=== PATIENT | female | born 1935 | race Caucasian/White ===

== ENCOUNTER 2023-07-17 06:13 | Day surgery (SDC) | payer MEDICARE, SELFPAY ==
[2023-07-12 09:04] LABS: % Basophils 0.4 % (0-2); % Immature Granulocytes 0.2 % (0-0.5); % Lymphocytes 30.1 % (20.5-51.1); % Monocytes 8.3 % (1.7-9.3); Absolute Eosinophils 0.3 10^3/uL (0-0.7); Absolute Lymphocytes 1.7 10^3/uL (1.2-3.4); Absolute Monocytes 0.5 10^3/uL (0.1-0.6); Absolute Neutrophils 3.2 10^3/uL (1.4-6.5); Hematocrit 35.7 % (37.0-47.0); Mean Corp Hgb Conc. 33.6 g/dL (33.0-37.0); Mean Corpuscular Hgb 30.8 pg (27.0-31.0); Mean Corpuscular Volume 91.5 fL (81.0-99.0); Nucleated Red Blood Cells % 0 %; Platelet Count 284 10^3/uL (130-400); White Blood Cell Count 5.6 10^3/uL (4.8-10.8)
[2023-07-12 09:29] LABS: INR 0.99; PT 13.1 Sec (11.4-14.6)
[2023-07-12 09:30] LABS: APTT 32.3 Sec (23.4-35.0)
[2023-07-12 09:35] LABS: ALT (SGPT) 22 U/L (0-35); AST (SGOT) 31 U/L (14-36); Albumin 4.2 g/dl (3.5-5.0); Alkaline Phosphatase 79 U/L (38-126); Blood Urea Nitrogen 17 mg/dl (7-17); Calcium 9.5 mg/dl (8.4-10.2); Carbon Dioxide 26 mmol/L (22-30); Chloride 107 mmol/L (98-107); Glucose 91 mg/dl (70-99); Potassium 3.7 mmol/L (3.5-5.1); Sodium 138 mmol/L (135-145); Total Bilirubin 0.8 mg/dl (0.2-1.3); Total Protein 7.3 g/dl (6.3-8.2); eGFR > 60.00
--- NOTE | 2023-07-12 10:43 | PTCARENOTE ---
Carrie at 's office was notified of abnormal chest x-ray taken on 07/12/23.
--- NOTE | 2023-07-12 12:52 | PTCARENOTE ---
Dr. Myles reviewed patients 07/12 CXR- requests 'followup'- Mary @ Dr. Christie office notified
[2023-07-17 06:10] VITALS: BMI 25.0
[2023-07-17 06:32] VITALS: BP 153/81
[2023-07-17] MEDS: CELEBREX 200 MG PO (07:03)
[2023-07-17] MEDS: NORMOSOL-R 1000 IV (07:03)
[2023-07-17] MEDS: TYLENOL 1000 MG PO (07:03)
[2023-07-17 07:10] VITALS: BMI 25.0
[2023-07-17 08:30] VITALS: BP 152/81
[2023-07-17 08:45] VITALS: BP 143/82
--- NOTE | 2023-07-17 08:51 | OR.RPT ---
Operative Report
Operative Report
DATE OF OPERATION: 07/17/2023
SURGEON: Brannon Bradley MD
PREOPERATIVE DIAGNOSIS: Grade 4 prolapsed internal hemorrhoid, possible anal mass
POSTOPERATIVE DIAGNOSIS: Anal mass, mild anal stenosis
OPERATION: Exam under anesthesia, biopsy of anal mass, bilateral pudendal nerve block
ASSISTANTS:
1. None
ANESTHESIA: MAC w/ local
ESTIMATED BLOOD LOSS: 5 mL
FINDINGS:
1. Prolapsing anal mass, about 3cm in length and 2cm wide, in the right lateral position without associated internal hemorrhoid, appears verrucous and nonmobile and causing mild anal stenosis; extends proximal into the anal canal to dentate line;
biopsied
2. Raised lesion in the left lateral quadrant of the distal anal canal, less than 1 cm in size; biopsied
3. Pendulous verrucous lesion, about 1 cm in size, noted in the right anterior position, possibly associated with right lateral anal mass versus a separate lesion; biopsied
SPECIMENS:
1. Right lateral mass biopsy
2. Left lateral lesion biopsy
3. Right anterior lesion biopsy
DRAINS: None
COMPLICATIONS: None
INDICATIONS: The patient is a 88-year-old female who presented with concern of prolapsing hemorrhoid associated with some pink-tinged drainage. On exam in the office, there appeared to be a prolapsing internal hemorrhoid with some nodularity
overlying the hemorrhoid. Therefore, the patient was recommended to have surgery for a better exam, possible hemorrhoidectomy and possible biopsy if concern for anal lesion. The operation was discussed with the patient in detail, including the
risks, benefits and alternatives. Risks described included, but not limited to, bleeding, infection, damage to nearby structures such as the anal sphincter, fecal incontinence, recurrence, urinary retention, and anesthetic risks. The patient
understood and agreed to proceed. The consent was signed and placed in the chart.
PROCEDURE IN DETAIL: The patient was taken to the operating room and placed on the operating table in prone position. Sequential compression devices were placed bilaterally. Sedation was commenced without complication. Two seat belts were secured
around the legs and upper back. The buttocks were taped apart. The perineum was prepped and draped in the usual fashion. A time-out was then performed verifying the correct patient, procedure, operative site, positioning, and special equipment.
Local anesthesia used was a mixture of 60 mL of 0.25% Marcaine with epinephrine and 0.6 mL of dexamethasone. 40 mL was injected perianally at the beginning of the case. The anorectal exam was performed assessing all four quadrants of the anal canal
using Hill-Gomez retractors in progressively increasing size. However, due to mild anal stenosis, the anus would not accommodate the large Hill-Gomez retractor. The prolapsing hemorrhoid in the right lateral position was evaluated and
appeared to be a prolapsing mass without an associated internal hemorrhoid as was initially thought from exam in the office. The mass was verrucous, not fungating or ulcerated, and about 3 cm in length, extending to the dentate line. It was about
2 cm wide and was associated with mild anal stenosis. There was also a small raised lesion in the left lateral aspect of the distal anal canal that was less than 1 cm in size. Lastly, a verrucous-appearing appendage was noted in the right anterior
position emanating from the midportion of the anal canal, possibly arising from the right lateral mass versus a separate lesion. There was no concerning internal or external hemorrhoids. Therefore, I proceeded with biopsies of each of the lesions.
Metzenbaum scissors were used to excise the prolapsing portion of the right lateral mass. There was no clear plane between the mass and the anal sphincter, but I attempted to minimize the amount of sphincter involved in the biopsy. This was
passed off and hemostasis was achieved with electrocautery. Next, the left lateral mass was biopsied by grasping the raised lesion, elevating it and excising a small portion with Metzenbaum scissors. Hemostasis was achieved with electrocautery.
The pendulous verrucous mass in the right anterior position of the mid anal canal was then grasped and elevated, and excised at it's stalk with Metzenbaum scissors. Hemostasis was achieved with holding pressure to the area for about 1 minute.
The anal canal was copiously irrigated and evaluated for hemostasis. Electrocautery was used to achieve hemostasis at the biopsy sites. Surgicel was placed in the anal canal prophylactically. At the end of the case, the remaining 20 mL of local
were injected. 5 mL was injected bilaterally for a pudendal nerve block. 10 mL was injected around the surgical site and perianally.
At this point, the procedure was complete. All needle, sponge and instrument counts were correct. The patient tolerated the procedure well and was transferred to the recovery room in stable condition with gauze dressing in place secured with silk
tape.
DICTATED BY: Brannon Bradley MD
[2023-07-17 09:15] VITALS: BP 160/81
[2023-07-17 09:30] VITALS: BP 137/65
[2023-07-17 09:45] VITALS: BP 138/68
== END 2023-07-17 10:20 | disposition home or self-care (01) ==
LOC: SDS 06:13
PROVIDERS: ATTENDING PHYSICIAN Surgery
DX: C21.0 Malignant neoplasm of anus, unspecified (principal); K64.3 Fourth degree hemorrhoids; K62.4 Stenosis of anus and rectum
CPT/HCPCS: 46260; 11403; 88304; 88305; 36415; 71046; 80053; 85025; 85610; 85730; 86850; 86900; 86901; 88342; 93005

== ENCOUNTER → 2023-08-01 07:56 | Outpatient (REF) | payer MEDICARE, SELFPAY | LOC: MRI 07:56 | PROVIDERS: ATTENDING PHYSICIAN Surgery; FAMILY PHYSICIAN Family Medicine | DX: C21.0 Malignant neoplasm of anus, unspecified (principal) | CPT/HCPCS: 72197; A9575 ==

== ENCOUNTER → 2023-08-02 15:00 | Outpatient (REF) | payer MEDICARE, SELFPAY | LOC: HWRAD 15:00 | PROVIDERS: ATTENDING PHYSICIAN Surgery; FAMILY PHYSICIAN Family Medicine | DX: C21.0 Malignant neoplasm of anus, unspecified (principal) | CPT/HCPCS: 71260; 74177; Q9967 ==

== ENCOUNTER 2023-08-20 06:56 | Day surgery (SDC) | payer MEDICARE, SELFPAY ==
[2023-08-20] VITALS (7 sets, daily range): BP systolic 116–155; BP diastolic 62–89
[2023-08-20] MEDS: TYLENOL 1000 MG PO (14:35)
[2023-08-20] MEDS: CELEBREX 200 MG PO (14:35)
[2023-08-20] MEDS: NORMOSOL-R 1000 IV (14:35)
--- NOTE | 2023-08-20 16:21 | OR.RPT ---
Operative Report
Operative Report
DATE OF OPERATION: 08/20/2023
SURGEON: Brannon Bradley MD
PREOPERATIVE DIAGNOSIS: Anal squamous cell cancer
POSTOPERATIVE DIAGNOSIS: Same
OPERATION: Right subclavian port-a-cath insertion
ASSISTANTS:
1. None
ANESTHESIA: MAC w/ local
ESTIMATED BLOOD LOSS: 10 mL
FINDINGS:
1. After placement, the tip of port catheter visualized at level of the cavoatrial junction on fluoroscopy
2. Once sutured in position, port tested with Gil needle and there was good withdrawal of blood and instillation of heparinized saline without resistance
SPECIMENS: None
DRAINS: None
COMPLICATIONS: No immediate complications.
INDICATIONS: The patient is a 88-year-old female with stage I anal squamous cell carcinoma. Neoadjuvant chemotherapy with chemoradiation was recommended. Therefore, I recommended port placement. The operation was discussed with the patient in
detail including risks and benefits. Risks discussed included, but are not limited to, bleeding, infection, hemothorax, pneumothorax, and anesthetic risks. The patient understood and agreed to proceed. The consent was signed and placed in the chart.
PROCEDURE: Patient was taken to the operating room and placed on the operating table in supine position. Sequential compression devices were placed bilaterally. Sedation was commenced without complication. Bilateral arms were tucked and the head
tilted toward the left. The right neck and chest wall area were prepped and draped in a sterile fashion. A time-out was then performed verifying the correct patient, procedure, operative site, positioning, and special equipment.
The patient was then placed in Trendelenburg position. Local anesthetic consisting of lidocaine 1% with epinephrine was used to numb the skin and soft tissue near the angle of the right clavicle and the planned subcutaneous port pocket. Then using
bony landmarks as a guide, I passed the needle with 10mL syringe under the right collar bone in the direction of the sternal notch while simultaneously aspirating. On the first pass, good venous return was noted indicating that I had accessed the
right subclavian vein. However, the guidewire was noted to be curling within the vessel and not advancing smoothly. Therefore I withdrew the needle and guidewire. A second pass was attempted. Good venous return was noted and the guidewire was
threaded without resistance. Under fluoroscopic guidance the guidewire was passed down to the superior vena cava. This went smoothly.
The needle was removed over the guidewire and a skin opening was enlarged with an 11 blade scalpel. Next, I advanced the dilator and peel-away sheath together over the guidewire into the patient. This went smoothly as well. Appropriate placement
was confirmed with fluoroscopy. Next, the guidewire and inner dilator were removed leaving the outer sheath in place. I advanced the white tubing through the outer sheath into the patient under fluoroscopic guidance to the superior vena cava near
the right atrium. Next, the outer sheath was peeled away while maintaining the white tubing in place.
Using a 15 blade scalpel, I made a 4cm incision over the chest wall near the white tubing exit site. A subcutaneous pocket was created inferiorly to the incision with a combination of Bovie electrocautery and blunt dissection. There was good
hemostasis. The white tubing was connected to the tunneling device and brought through a newly created tunnel to the pocket area, taking care to avoid kinking of the tube. The white tubing was trimmed, connected to the the port reservoir and secured
with the locking mechanism. The port reservoir was accessed with good venous return and flushed with heparinized saline. One last round of fluoroscopy was performed. The tip of the white tubing was at the level of the superior vena cava and there
was no kink in the tubing.
The reservoir was then secured to the chest wall within the pocket with two 3-0 Prolene stitches. The subcutaneous layer was closed with deep dermal interrupted 3-0 Vicryl and the skin was closed with a running subcuticular 4-0 Vicryl. The remaining
local was injected around the subcutaneous pocket, port incision and stab incision. Dermabond was used to dress the port incision and stab incision.
At this point, the procedure was complete. All sponge, needle and instrument counts were correct. The patient tolerated the procedure well and was transferred to the recovery room in stable condition. A portable chest x-ray was ordered in recovery
to confirm port position and rule-out pneumothorax.
DICTATED BY: Brannon Bradley MD
== END 2023-08-20 18:07 | disposition home or self-care (01) ==
LOC: SDS 06:56
PROVIDERS: ATTENDING PHYSICIAN Surgery
DX: C21.0 Malignant neoplasm of anus, unspecified (principal)
CPT/HCPCS: 36561; 71045; 76000; C1788

== ENCOUNTER → 2023-08-29 13:55 | Outpatient (REF) | payer MEDICARE, SELFPAY ==
[2023-08-29 14:26] VITALS: BP 140/80; BP_SYST 72
[2023-08-29 14:50] VITALS: BP 153/77
== END ==
LOC: RADI 13:55
PROVIDERS: ATTENDING PHYSICIAN Registered Nurse; FAMILY PHYSICIAN Family Medicine
DX: T82.524A Displacement of infusion catheter, initial encounter (principal); Y83.8 Other surgical procedures as the cause of abnormal reaction of the patient, or of later complication, without mention of misadventure at the time of the procedure; C21.1 Malignant neoplasm of anal canal
CPT/HCPCS: 36598

== ENCOUNTER → 2023-08-30 12:45 | Outpatient (REF) | payer MEDICARE, SELFPAY ==
[2023-08-30] MEDS: TRANSDERM-SCOP 1 PATCH TRANSDERM (13:31)
[2023-08-30 13:32] VITALS: BP 167/83; BP_SYST 62
[2023-08-30] MEDS: ANCEF 10 IV (13:44)
[2023-08-30 15:34] VITALS: BP 129/81
== END ==
LOC: RADI 12:45
PROVIDERS: ATTENDING PHYSICIAN Registered Nurse; FAMILY PHYSICIAN Family Medicine
DX: T82.524A Displacement of infusion catheter, initial encounter (principal); Y83.8 Other surgical procedures as the cause of abnormal reaction of the patient, or of later complication, without mention of misadventure at the time of the procedure; C21.0 Malignant neoplasm of anus, unspecified
CPT/HCPCS: 36561; 36590; 76937; 77001; 99152; 99153; C1788

== ENCOUNTER 2023-10-09 10:04 | Inpatient (IN) | payer MEDICARE, SELFPAY ==
[2023-10-07 18:20] VITALS: BP 152/71
[2023-10-07 18:26] LABS: Glucose - Point of Care 106 mg/dl (70-99)
--- NOTE | 2023-10-07 18:52 | ED.GENMED ---
History of Present Illness
General
Chief Complaint: Abdominal Symptoms
Source: patient and family
Exam Limitations: none
Time Seen by Provider: 10/07/23 18:52
Nursing documentation reviewed up to this point in time: agreed with
Travel History
Have you had any contact with someone who has COVID-19?: No
Do you have any symptoms of coronavirus? Fever > 100 degrees, chills, cough, shortness of breath, sore throat, loss of taste or smell, muscle aches, or headache?: No
History of Present Illness
History of Present Illness:
88-year-old female with history of HTN, anal squamous cell cancer, right subclavian Port-A-Cath, followed by [facility] Dr. Waters. Sunday (2 days ago), finished her second week of chemo and was also given one dose of Mitomycin at
that visit (and was told by Dr. Ortiz that 'the side effects will be much worse' per pt and her friend at bedside). She has been incontinent of stool since 'it is like chocolate syrup just pouring out of me.' 'My rectum and vaginal areas are so swollen
and sore.' She is also losing more of her hair. Denies n/v, fever, abdominal pain, CP, SOB. She also finished her radiation treatment 2 days ago.
Past History
Past History
ED Past Medical History: HTN and Hypercholesterolemia
ED Past Surgical History: Gynecological (Hysterectomy) and Orthopedic (Status post right femur ORIF, R knee replaced both in 2022 Dr. Mtz at [facility])
Social History
Tobacco: Non-smoker
Alcohol: None
Drug: None
Personal:
Living: alone
Family History
Family History: Other (Father with valve replacement. Brother with a valve replacement. Sister with pancreatic cancer)
Review of Systems
Review of Systems
Allergies reviewed?: Yes
All Other Systems: ROS reviewed and negative except as documented in HPI and ROS
Constitutional: Reports fatigue; Denies fever
EENT: Reports mouth pain
Respiratory: Denies trouble breathing
Cardiac: Denies chest pain
ABD/GI: Reports diarrhea and anorexia; Denies abdominal pain, nausea, vomiting or bloody stools
: Reports other (vaginal irritation, swelling and pain, rectal pain and irritation); Denies dysuria, difficulty voiding or urgency
Musculoskeletal: Denies edema
Neurological: Reports weakness (generalized); Denies dizzy, headache or numbness
Phy Exam
Physical Exam
Physical Exam:
GENERAL: No acute distress. A&Ox3. Weak and frail
CONSTITUTIONAL: Afebrile.
EYES: PERRL, conjunctivae normal
Neck: Supple
ENMT: moist mucus membranes, few small erythematous patches soft palate and pharynx
RESPIRATORY: Regular respirations, nonlabored, lungs clear.
CARDIOVASCULAR: Regular rate and rhythm, no murmurs, no rubs.
GI: Soft, nontender, normal BS
: vaginal and rectal area mild to moderately swollen and tender, erythematous, no pus drainage, skin intact
MUSCULOSKELETAL: Moves with ease. Well perfused.
SKIN: Warm, dry, pink
PSYCH: Normal mood and affect. Well kept, interactive and appropriate
NEUROLOGIC: Awake, alert and oriented. No focal neurological deficits
Course
Orders/Labs/Results
Orders:
Orders
10/07/23 19:04
STOOL [C difficile Antigen & Toxins] Urgent
QIAAN Source: Feces/Stool
Specimen Description:
Stool Culture Urgent
QIANA Source: Feces/Stool
Specimen Description:
0.9% Sodium Chloride 1000 ml [Nss] 1,000 ml IV BOLUS
10/07/23 19:10
Complete Blood Count/With Diff Urgent
Comprehensive Metabolic Panel Urgent
10/07/23 22:00
Flush (0.9% Sodium Chloride) [Flush (Nss)] See Dose Instructions IV PER PROTOCOL
10/07/23 22:47
Admit/Transfer Patient As Directed
Co-Sign Provider:
Level of Care: Observation services
Assign to:: Medical/Surgical
Physician / Group: hospitalist
Diagnosis: diarrhea
10/07/23 22:50
Code Status As Directed
Resuscitation Status: Full Code
10/08/23 00:14
Acetaminophen [Tylenol] 650 mg PO Q4HPRN PRN
Dextrose 5%/0.45%Sodchl 1000ML [D5/0.45%NaCl] 1,000 ml IV 100 mls/hr
Lorazepam [Ativan] 1 mg PO BID PRN
Mag&Al/Sim/Diphenhyd/Lidocaine [First-Mouthwash Blm Suspension] 5 ml PO QIDPRN PRN
Ondansetron Injectable [Zofran] 4 mg IV Q6HPRN PRN
Oxycodone [Roxicodone] 5 mg PO Q4HPRN PRN
10/08/23 00:14
Consult Notification Routine
Specialty to Notify: Oncology
ONCOLOGY CONSULT Routine
Consulting Provider: Sidra Panchal
Was physician already notified: No
Reason for consult: post chemo mucositis/diarrhea
CDIFF [C difficile Antigen & Toxins] Urgent
QIANA Source: Feces/Stool
Specimen Description:
Stool Culture Urgent
QIANA Source: Feces/Stool
Specimen Description:
Stool For WBC Urgent
QIANA Source: Feces/Stool
Specimen Description:
Activity As Directed
Activity Level: With Assistance
Vital Signs As Directed
Frequency: Per unit guidelines
DX Deep Vein Thrombosis Video Routine
10/08/23 06:00
Basic Metabolic Panel IN AM
Complete Blood Count/No Diff IN AM
10/08/23 08:00
Losartan [Cozaar] 100 mg PO DAILY
10/08/23 Dinner
Full Liquids
At Your Request: Limited Participation
Flush Continuous pump feedings with water (mL/hr): 25
10/08/23 18:00
Enoxaparin Sodium [Lovenox] 40 mg SC QPM
10/08/23 22:00
Metoprolol Xl [Toprol Xl] 25 mg PO HS
Abnormal Lab Results
10/07/23 10/07/23
18:24 19:10
WBC 3.5 L 10^3/uL
(4.8-10.8)
RBC 3.04 L 10^6/uL
(4.20-5.40)
Hgb 9.8 L g/dL
(12.0-16.0)
Hct 27.3 L %
(37.0-47.0)
MCH 32.2 H pg
(27.0-31.0)
Absolute Lymphs (auto) 0.3 L 10^3/uL
(1.2-3.4)
Immature Gran % 0.9 H %
(0-0.5)
Neutrophils % 84.3 H %
(42.2-75.2)
Lymphocytes % 7.4 L %
(20.5-51.1)
BUN 19 H mg/dl
(7-17)
Glucose 114 H mg/dl
(70-99)
Total Protein 5.9 L g/dl
(6.3-8.2)
Albumin 3.4 L g/dl
(3.5-5.0)
POC Glucose 106 H mg/dl
(70-99)
10/07/23 19:10
10/07/23 19:10
Vital Signs
Initial and Last Documented VS:
Initial Vital Signs
Temp Pulse Resp BP Pulse Ox
98.2 F 65 19 152/71 99
10/07/23 18:20 10/07/23 18:20 10/07/23 18:20 10/07/23 18:20 10/07/23 18:20
Last Documented Vital Signs
Temp Pulse Resp BP Pulse Ox
98.4 F 62 18 124/87 97
10/08/23 00:15 10/08/23 00:23 10/08/23 00:23 10/08/23 00:23 10/08/23 00:23
MDM/Problems Addressed
Differential Diagnosis Includes:
mucosal irritation, chemo side effect, Cdiff, bacterial colitis
MDM/Problems Addressed:
88-year-old female with history of HTN, anal squamous cell cancer, right subclavian Port-A-Cath, followed by [facility] Dr. Waters. Sunday (2 days ago), finished her second week of chemo and was also given one dose of Mitomycin at
that visit (and was told by Dr. Ortiz that 'the side effects will be much worse' per pt and her friend at bedside). She has been incontinent of stool since 'it is like chocolate syrup just pouring out of me.' 'My rectum and vaginal areas are so swollen
and sore.' She is also losing more of her hair. Denies n/v, fever, abdominal pain, CP, SOB. She also finished her radiation treatment 2 days ago.
Afebrile
Labs with no clinically significant abnormality
9:30 PM
No diarrhea since arrival
After 1 Liter NSS IV pt states she still feels 'so weak'
Consulted Dr. Panchal who requests pt be admitted as she lives alone, has mouth sores and diarrhea from chemotherapy.
Admit: Oral mucosal inflammation, generalized weakness, mild dehydration, diarrhea
Hospitalist notified of admission
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
*Critical Care Note
Total Time (30-74mins, 75-104mins- exclusive of procedures): Not Applicable
Patient Management
Social determinants of health affecting care: Strong social support
ED Attending Note
-
Portions of this chart may have been created with voice recognition software.� Occasional wrong word or��sound alike� substitutions may have occurred due to the inherent limitations of voice recognition software.
Discharge Plan
Departure
Patient Disposition: Admit
Date of Disposition: 10/07/23
Time of Disposition: 21:26
Presentation/result/management discussed w/ accepting MD/DO: Hospitalist
Condition: Fair
Discharge Problem:
Mild dehydration, General weakness, Oral cavity pain, Diarrhea due to drug
Interventions
Interventions:
*Risk Screen - Suicide Last Done: 10/07/23 18:20
*General Assessment Last Done: 10/07/23 18:20
*Neglect/Abuse Screening Last Done: 10/07/23 18:20
ED- Fall Risk Assessment Last Done: 10/08/23 00:23
*ED COVID-19 Vaccine History Last Done: 10/07/23 18:20
*Nursing Disposition Last Done: 10/08/23 00:23
JE-Iagfce-Zbldjumdck Assessment Last Done: 10/07/23 18:58
Discharge Date and Time
Discharge Date/Time: 10/08/23 00:24
[2023-10-07 19:02] VITALS: BP 118/70
[2023-10-07] MEDS: NSS 1000 IV (19:11)
[2023-10-07 19:17] LABS: % Basophils 0.3 % (0-2); % Eosinophils 5.4 % (0-6); % Immature Granulocytes 0.9 % (0-0.5); % Lymphocytes 7.4 % (20.5-51.1); % Monocytes 1.7 % (1.7-9.3); % Neutrophils 84.3 % (42.2-75.2); Absolute Eosinophils 0.2 10^3/uL (0-0.7); Absolute Lymphocytes 0.3 10^3/uL (1.2-3.4); Absolute Monocytes 0.1 10^3/uL (0.1-0.6); Hematocrit 27.3 % (37.0-47.0); Hemoglobin 9.8 g/dL (12.0-16.0); Mean Corp Hgb Conc. 35.9 g/dL (33.0-37.0); Mean Corpuscular Hgb 32.2 pg (27.0-31.0); Mean Corpuscular Volume 89.8 fL (81.0-99.0); Mean Platelet Volume 8.9 fL (7.4-10.4); Nucleated Red Blood Cells % 0 %; Platelet Count 132 10^3/uL (130-400); Red Blood Cell Count 3.04 10^6/uL (4.20-5.40); Red Cell Dist. Width 14.3 % (11.5-14.5); White Blood Cell Count 3.5 10^3/uL (4.8-10.8)
[2023-10-07 20:07] LABS: ALT (SGPT) 18 U/L (0-35); AST (SGOT) 21 U/L (14-36); Albumin 3.4 g/dl (3.5-5.0); Alkaline Phosphatase 59 U/L (38-126); Blood Urea Nitrogen 19 mg/dl (7-17); Calcium 9.2 mg/dl (8.4-10.2); Carbon Dioxide 24 mmol/L (22-30); Chloride 104 mmol/L (98-107); Glucose 114 mg/dl (70-99); Potassium 3.9 mmol/L (3.5-5.1); Sodium 135 mmol/L (135-145); Total Protein 5.9 g/dl (6.3-8.2); eGFR > 60.00
[2023-10-07 22:16] VITALS: BP 125/81
--- NOTE | 2023-10-07 22:42 | HPS.HSE ---
Family Physician
-
Family Physician: Lauri Alarcon
Chief Complaint
-
Mouth pain and diarrhea with weakness
History of Present Illness
This is a 88-year-old female was history of anal cancer currently on chemotherapy and radiation who presents to the emergency department after her last treatment with oral ulcers and pain as well as uncontrolled diarrhea for the last 2 days.
Patient reported that in addition to her usual chemotherapy she received mitomycin on Sunday and since then she has been having a lot of trouble with tolerating p.o. due to oral pain.� She has been having recurrent diarrhea with watery stools at
home.� She reports chills but no connor fevers.� She denies abdominal pain.� She is unable to tolerate p.o. and feels dehydrated.� She denied any syncopal episodes.� She feels weak and exhausted.
She has received multiple rounds of radiation to the pelvic region and developed perineal pain and swelling.� She does denies any dysuria, flank pain or hematuria.� She was sent into the emergency department by her oncologist.
On arrival in the emergency department she was normotensive, afebrile and in moderate distress.� Saturation was 97% on room air.� CBC was unremarkable with a white count of 3.5 hemoglobin of 9.8, platelet of 132.� Chemistries were also within normal
limits.�
Medical History
Past Medical History
Past Medical History: Reports HTN
Additional Past Medical History:
Anal Ca
Past Surgical History: Reports Orthopedic
Social History
Tobacco: Non-smoker
Alcohol: None
Drug: None
Personal: Single
Living: Alone
Employment: Retired
Family History
Family History: Not pertinent
Allergies / Home Medications
Allergies reflects when Allergies were last updated in [employer].
Home Medications with original date entered in [employer]
Allergy/Medication List:
Allergies
Allergy/AdvReac Type Severity Reaction Status Date / Time
clindamycin Allergy Rash Verified 08/29/23 14:31
Home Medications
Prevagen 1 tab PO DAILY 12/11/19
coenzyme Q10 100 mg capsule (Co Q-10) 100 mg PO DAILY 12/11/19
cyanocobalamin (vitamin B-12) 1,000 mcg tablet 1,000 mcg PO DAILY 12/11/19
Align 2 gum PO DAILY 07/13/23
Curcumin 1 tab PO DAILY 07/13/23
Metamucil 2 gum PO HS 07/13/23
Multi-Vitamin 2 gum PO DAILY 07/13/23
[place] 3 Fish Oil 1,080 mg PO DAILY 07/13/23
Vitamin C 1 gum PO DAILY 07/13/23
hydralazine 10 mg tablet 20 mg PO TID 07/13/23
lorazepam 1 mg tablet 1 mg PO DAILY PRN anxiety 07/13/23
losartan 100 mg tablet 100 mg PO DAILY 07/13/23
magnesium citrate 2 gum PO DAILY 07/13/23
metoprolol succinate 25 mg tablet,extended release 24 hr 25 mg PO HS 07/13/23
turmeric 3 gum PO DAILY 07/13/23
vitamin D3 125 mcg (5,000 unit)-vitamin K2 100 mcg capsule 1 cap PO DAILY 07/13/23
tramadol 50 mg tablet 50 mg PO Q6H PRN Pain #10 tabs 07/17/23
Beet Root 1 gum PO DAILY 08/16/23
naproxen 500 mg tablet (Naprosyn) 500 mg PO BID #10 tabs 08/20/23
Review of Systems
-
History Source: Patient
Constitutional: Reports Weight Loss and Fatigue
EENT: Reports Mouth Pain
Respiratory: Reports No Symptoms
Cardiac: Reports No Symptoms
Abdomen/GI: Reports Diarrhea and Anorexia
: Reports No Symptoms
Musculoskeletal: Reports No Symptoms
Skin: Reports No Symptoms
Neurological: Reports Weakness
Hematologic/Lymphatic: Reports No Symptoms
Psych: Reports No Symptoms
Physical Exam
Vital Signs
Vital Signs
Temp Pulse Resp BP Pulse Ox
98.2 F 64 18 125/81 97
10/07/23 18:20 10/07/23 22:16 10/07/23 22:16 10/07/23 22:16 10/07/23 22:16
Physical Exam
General: Well Developed, Well Nourished, Appears in Distress and Poor Appetite
HEENT: NormoCephalic, Anicteric, Moist mucous membranes and Atraumatic
Respiratory: Clear
Cardiac: S1/S2 and Regular Rhythm
Breast: Deferred by me
GI: Soft, Non Tender, Non Distended and Normal Bowel Sounds
Rectal: Deferred by Provider
Genito-urinary: Turbid Urine
Musculoskeletal: No Clubbing, No Cyanosis and No Edema
Skin: Warm and Lesions
Neuro: AO x 3 and Nonfocal/grossly intact
Hematologic/Lymphatic: No Lymphadenopathy
Psych: Calm
Laboratory Results
-
10/07/23 19:10
10/07/23 19:10
Laboratory Results
Total Bilirubin 1.0 mg/dl (0.2-1.3) 10/07/23 19:10
AST 21 U/L (14-36) 10/07/23 19:10
ALT 18 U/L (0-35) 10/07/23 19:10
Alkaline Phosphatase 59 U/L (38-126) 10/07/23 19:10
Data Reviewed
-
Lab Data: Labs Reviewed by me
Impression/Plan
-
IMPRESSION:
88 y.o with anorectal ca s/p XRT and chemotherapy coming to ED after last infusion with mytomycin.� She reports oral pain and ulcers and persistent watery diarrhea.� No fevers, chills or leukocytosis.� Unable to tolerate po and significant weakness.
PLAN:
1.� Diarrhea - Suspect post chemo diarrhea from mucositis.� Moderate dehydration. Hemodynamically stable.� More uncomfortable than toxic.
- admit to med/surg
- rule out CDIFF, and stool culture and wbc
- IV fluids with d5 NS for nor
- diet as tolerated
2.� Weakness - 2/2 to chemo and deydration
- IV fluids as above
3.� Oral Mucositis
- magic mouth wash
- pain control
4. HTN
- metoprlol 25 daily
- amlodipine 5 daily
DVT PPX - lovenox sq
Full Code
[2023-10-08 00:15] VITALS: BP 157/70; BMI 23.6
[2023-10-08 00:23] VITALS: BP 124/87
[2023-10-08] MEDS: ZOFRAN 4 MG IV ×3 (00:40→20:15)
[2023-10-08] MEDS: D5/0.45%NACL 1000 IV ×3 (00:40→20:14)
--- NOTE | 2023-10-08 01:00 | PTCARENOTE ---
pt is aaox3, anxious, states she feels extremely weak, poor appetite since Fridays chemo, and diarrhea since Sunday. pt is on IVF. Pt is giving Zofran for nausea. pt has mouth sores-is on medicated mouth wash. home medications taking to pharmacy. pt
is oriented to room w/ call vargas in reach
[2023-10-08] MEDS: TYLENOL 650 MG PO ×3 (01:01→20:20)
[2023-10-08 06:16] LABS: Hematocrit 25.4 % (37.0-47.0); Mean Corp Hgb Conc. 35.4 g/dL (33.0-37.0); Mean Corpuscular Hgb 31.7 pg (27.0-31.0); Mean Corpuscular Volume 89.4 fL (81.0-99.0); Mean Platelet Volume 9.1 fL (7.4-10.4); Platelet Count 125 10^3/uL (130-400); Red Blood Cell Count 2.84 10^6/uL (4.20-5.40); Red Cell Dist. Width 14.1 % (11.5-14.5)
[2023-10-08 06:25] LABS: White Blood Cell Count 1.9 10^3/uL (4.8-10.8)
--- NOTE | 2023-10-08 06:31 | CON.ONC ---
Impression
Impression
Anal canal cancer, stage I (T1 N0)
Chemo mucositis
Chemo/RT enteritis
Dehydration
History of hemorrhoids
History of mycosis fungoides, currently quiescent
Plan
Plan
IV hydration
Magic mouthwash
Increase Imodium and change to standing dose
Only wants Tylenol for pain.
Low threshold for adding GCSF, needs diff on daily CBC.
Try to d/c 10/08, needs to resume radiation, has four treatments left.
Thank you for consult, will follow along with you.
Patient History
History of Present Illness
88 yo woman well known to me from the outpt setting for history of anal cancer, undergoing chemo/RT with curative intent. First cycle of chemotherapy was with 5-FU only due to question of tolerance at 88. However, she tolerated cycle 1 very well
and had a lot of concerns about recurrence risk so mitomycin was added at 20% dose reduction for cycle 2, given 5 - 10/04. Pt called the office last night with c/o severe diarrhea, mouth sores, perineal irritation from radiation. Denies fever.
Not yet done with radiation. Pt lives alone and was having difficulty managing due to weakness, pain. Sent to ED where vitals were stable but noted to be in moderate distress. Today, states mouth feels better. She does not want to take oxycodone
for pain, only wants Tylenol. Still with significant diarrhea.
Past-Medical/Surgical History
PMHx
Hypertension. Hyperlipidemia. GERD.
Surg
Right Knee and left Hip surgery. Hysterectomy
Soc
Non-smoker, lives alone, single, no children, support system/medical advocate is close friend Leann.
Fam
Mother colon cancer
Sister pancreatic cancer
Patient Medication
�Medication �Instructions �Recorded �Confirmed �Last Taken �Type
Prevagen 1 tab PO DAILY 12/11/19 10/07/23 08/20/23 09:00 History
coenzyme Q10 100 mg capsule (Co 100 mg PO DAILY 12/11/19 10/07/23 08/19/23 History
Q-10)
cyanocobalamin (vitamin B-12) 1,000 mcg PO DAILY 12/11/19 10/07/23 08/19/23 History
1,000 mcg tablet
Align 2 gum PO DAILY 07/13/23 10/07/23 08/19/23 History
Curcumin 1 tab PO DAILY 07/13/23 10/07/23 08/19/23 History
Metamucil 2 gum PO HS 07/13/23 10/07/23 08/19/23 History
Multi-Vitamin 2 gum PO DAILY 07/13/23 10/07/23 08/19/23 History
Grover 3 Fish Oil 1,080 mg PO DAILY 07/13/23 10/07/23 08/19/23 History
Vitamin C 1 gum PO DAILY 07/13/23 10/07/23 08/19/23 History
lorazepam 1 mg tablet 1 mg PO DAILY PRN anxiety 07/13/23 10/07/23 08/20/23 09:00 History
losartan 100 mg tablet 100 mg PO DAILY 07/13/23 10/07/23 08/19/23 08:00 History
magnesium citrate 2 gum PO DAILY 07/13/23 10/07/23 08/19/23 History
metoprolol succinate 25 mg 25 mg PO HS 07/13/23 10/07/23 08/19/23 20:00 History
tablet,extended release 24 hr
turmeric 3 gum PO DAILY 07/13/23 10/07/23 08/19/23 History
vitamin D3 125 mcg (5,000 1 cap PO DAILY 07/13/23 10/07/23 08/19/23 History
unit)-vitamin K2 100 mcg capsule
Beet Root 1 gum PO DAILY 08/16/23 10/07/23 08/19/23 History
Active Medications
Generic Name Dose Route Start Last Admin
Trade Name Freq PRN Reason Stop Dose Admin
Acetaminophen 650 mg 10/08/23 00:14 10/08/23 01:01
Acetaminophen 325 Mg Tablet PO 11/05/23 00:13 650 mg
Q4HPRN PRN Administration
mild pain/CRUZ/temp> 100.4F
Enoxaparin Sodium 40 mg 10/08/23 18:00
Enoxaparin Sodium 40 Mg/0.4 Ml Syringe SC 11/05/23 17:59
QPM STAN
Dextrose/Sodium Chloride 1,000 mls @ 100 mls/hr 10/08/23 00:14 10/08/23 00:40
D5/0.45%Nacl IV 1,000 mls
.Q10H STAN Administration
Lidocaine/Diphenhydr/Alum/Mg/Simeth 5 ml 10/08/23 00:14
Magic Mouthwash 5 Ml Cup (Mag&Al/Sim/Diphenhyd/Lidocaine) PO 11/05/23 00:13
QIDPRN PRN
oral pain
Lorazepam 1 mg 10/08/23 00:14
Lorazepam 1 Mg Tablet PO 11/05/23 00:13
BID PRN
anxiety
Losartan Potassium 100 mg 10/08/23 08:00
Losartan 100 Mg Tablet PO 11/05/23 07:59
DAILY STAN
Metoprolol Succinate 25 mg 10/08/23 22:00
Metoprolol 25 Mg Extended Release Tablet PO 11/05/23 21:59
HS STAN
Ondansetron HCl 4 mg 10/08/23 00:14 10/08/23 00:40
Ondansetron 4 Mg/2 Ml Vial IV 11/05/23 00:13 4 mg
Q6HPRN PRN Administration
NAUSEA/VOMITING
Oxycodone HCl 5 mg 10/08/23 00:14
Oxycodone 5 Mg Regular Release Tablet PO 10/22/23 00:13
Q4HPRN PRN
moderate pain
Sodium Chloride 0 flush 10/07/23 22:00
Sodium Chloride 0.9% (Flush) Syringe IV 11/04/23 21:59
PER PROTOCOL STAN
Physical Exam
-
General: Well Developed and Well Nourished
HEENT: Moist Mucous Membranes
Cardiology: Normal Sinus Rhythm, S1 and S2
Pulmonary: Clear
GI: Soft
Extremities: No C/C/E
Neurology: Non Focal
Skin: Warm and Dry
Hematologic / Lymphatic: No Lymphadenopathy
Psych: Calm and Intact Judgement/Insight
Labs
Lab Results
WBC 1.9 10^3/uL (4.8-10.8) L* 10/08/23 05:52
RBC 2.84 10^6/uL (4.20-5.40) L 10/08/23 05:52
Hgb 9.0 g/dL (12.0-16.0) L 10/08/23 05:52
Hct 25.4 % (37.0-47.0) L 10/08/23 05:52
MCV 89.4 fL (81.0-99.0) 10/08/23 05:52
MCH 31.7 pg (27.0-31.0) H 10/08/23 05:52
MCHC 35.4 g/dL (33.0-37.0) 10/08/23 05:52
RDW 14.1 % (11.5-14.5) 10/08/23 05:52
Plt Count 125 10^3/uL (130-400) L 10/08/23 05:52
MPV 9.1 fL (7.4-10.4) 10/08/23 05:52
Abs Immat Gran (auto) 0.0 10^3/uL (0-0.05) 10/07/23 19:10
Absolute Neuts (auto) 3.0 10^3/uL (1.4-6.5) 10/07/23 19:10
Absolute Lymphs (auto) 0.3 10^3/uL (1.2-3.4) L 10/07/23 19:10
Absolute Monos (auto) 0.1 10^3/uL (0.1-0.6) 10/07/23 19:10
Absolute Eos (auto) 0.2 10^3/uL (0-0.7) 10/07/23 19:10
Absolute Basos (auto) 0.0 10^3/uL (0-0.2) 10/07/23 19:10
Immature Gran % 0.9 % (0-0.5) H 10/07/23 19:10
Neutrophils % 84.3 % (42.2-75.2) H 10/07/23 19:10
Lymphocytes % 7.4 % (20.5-51.1) L 10/07/23 19:10
Monocytes % 1.7 % (1.7-9.3) 10/07/23 19:10
Eosinophils % 5.4 % (0-6) 10/07/23 19:10
Basophils % 0.3 % (0-2) 10/07/23 19:10
Creatinine 0.9 mg/dL (0.6-1.0) 10/07/23 19:10
Vital Signs
Vital Signs
Temp Pulse Resp BP Pulse Ox
98.4 F 62 18 124/87 97
10/08/23 00:15 10/08/23 00:23 10/08/23 00:23 10/08/23 00:23 10/08/23 00:23
[2023-10-08 06:46] LABS: Blood Urea Nitrogen 15 mg/dl (7-17); Calcium 8.7 mg/dl (8.4-10.2); Carbon Dioxide 22 mmol/L (22-30); Chloride 107 mmol/L (98-107); Estimated Creatinine Clearance 50 ml/min; Glucose 101 mg/dl (70-99); Potassium 3.5 mmol/L (3.5-5.1); Sodium 135 mmol/L (135-145); eGFR > 60.00
[2023-10-08 07:00] VITALS: BP 142/81
[2023-10-08] MEDS: COZAAR 100 MG PO (07:42)
[2023-10-08] MEDS: FIRST-MOUTHWASH BLM SUSPENSION 5 ML PO ×3 (08:05→22:30)
--- NOTE | 2023-10-08 09:49 | W.PN.HOSP.TC ---
Today's Communication/Plan
-
see bold, supportive care
Assessment / Plan
Assessment / Plan
88 F with anorectal ca s/p XRT and chemotherapy coming to ED after last infusion with mytomycin.� She reports oral pain and ulcers and persistent watery diarrhea.� No fevers, chills or leukocytosis.� Unable to tolerate po and significant weakness.
Gen: NAD, AAOx3.
Eyes: EOMI, PERRLA, no scleral icterus.
Neck: supple.
CV: RRR, +S1/S2, no m/r/g.
Resp: CTAB, no rales, wheezes, or rhonchi.
Abd: +BS, soft, NT, ND
Skin: No rashes.
Neuro: CN 2-12 intact, non-focal.
Psych: Normal mood and affect.
Anorectal cancer s/p chemo/XRT:
-with pancytopenia: due to chemo
-Daily CBC with diff
-May need G-CSF
-ONC following
Diarrhea:
-likely due to chemo/XRT induced enteritis
-cont IVFs
-C diff NEG
-follow rest of stool studies
-imodium PRN
Weakness:
-due to chemo and dehydration
-cont IVFs
Oral Mucositis:
-cont magic mouth wash
-pain control
Essential HTN:
-cont BB/Norvasc
FULL/Lovenox
Anticipated Discharge: > 48 hours
Subjective/Interval History
-
Date of Service: October 08, 2023
c/o anterior and submandibular neck pain as well as diarrhea
Objective Data
-
Labs:
Laboratory Results
10/08/23
05:52
WBC 1.9 L*
Hgb 9.0 L
Hct 25.4 L
Plt Count 125 L
Sodium 135
Potassium 3.5
Chloride 107
Carbon Dioxide 22
BUN 15
Creatinine 0.7
Glucose 101 H
Calcium 8.7
Vital Signs:
Vital Signs
Temp Pulse Resp BP Pulse Ox
98.2 F 73 18 142/81 98
10/08/23 07:00 10/08/23 07:42 10/08/23 07:00 10/08/23 07:42 10/08/23 07:00
I&O
10/07/23 10/08/23 10/09/23
06:59 06:59 06:59
Intake Total 800 / 800
Output Total 200 / 200
Balance 600 / 600
[2023-10-08] MEDS: IMODIUM 2 MG PO ×2 (10:48→20:20)
--- NOTE | 2023-10-08 10:48 | CM ---
Met with pt at bedside
Pt lives alone in a 1 story home, has support
Currently receiving chemo and radiation for anal cancer. Received last chemo treatment on Sunday
Describes self as independent - does own cooking. cleaning, shopping
DME - cane
SNF/HH - denies past hx
Has ride at d/c
PCP - Dr Colleen Parks
Pharm - [facility]
CM will follow for d/c needs
Plan - anticipate home no needs vs with HH
[2023-10-08 13:03] VITALS: BP 166/79; PULSE 69; O2SAT 95
--- NOTE | 2023-10-08 13:17 | PTOTSP ---
ST Contact
Attempted to see pt for dysphagia evaluation; however, pt adamantly refusing evaluation, stating she 'doesn't need to see any more doctors.' Extensive education provided, but pt continues to refuse. Will try again 1x more tomorrow.
[2023-10-08 15:00] VITALS: BP 164/82
[2023-10-08 15:04] VITALS: BMI 23.6
[2023-10-08] MEDS: HYDROPHOR 1 APPLIC TOPICAL (16:17)
[2023-10-08] MEDS: LMX 4 1 APPLIC TOPICAL ×2 (18:09→22:30)
[2023-10-08] MEDS: ATIVAN 1 MG PO (20:20)
[2023-10-08] MEDS: TOPROL XL 25 MG PO (22:30)
[2023-10-08] MEDS: SILVADENE 1 APPLIC TOPICAL (22:30)
[2023-10-08 23:00] VITALS: BP 141/76
[2023-10-09] MEDS: IMODIUM 2 MG PO ×2 (04:09→08:59)
[2023-10-09] MEDS: D5/0.45%NACL 1000 IV (05:44)
[2023-10-09 07:00] VITALS: BP 160/79
[2023-10-09] MEDS: LMX 4 1 APPLIC TOPICAL (08:53)
[2023-10-09] MEDS: COZAAR 100 MG PO (08:53)
[2023-10-09] MEDS: ATIVAN 1 MG PO (08:59)
[2023-10-09] MEDS: ZOFRAN 4 MG IV (09:00)
[2023-10-09] MEDS: HYDROPHOR 1 APPLIC TOPICAL (09:07)
[2023-10-09] MEDS: SILVADENE 1 APPLIC TOPICAL (09:08)
--- NOTE | 2023-10-09 09:16 | PTOTSP ---
ST Contact
Pt adamantly refused evaluation. FUEL CELL ENGINEER to sign off. Please re-consult if/when pt is more amenable to participating in evaluation. Thank you.
--- NOTE | 2023-10-09 10:10 | W.PN.HOSP.TC ---
Addendum entered and electronically signed by Royal Akers MD 10/09/23 12:33:
Case discussed with oncology. Medically cleared for discharge.
Total time spent on d/c = 33 min. This included today's physical exam, progress note, review of laboratory and diagnostic data, preparation of discharge documents and prescriptions, and discussions about the pt's hospital course and discharge plan
with the patient and other medical information officer involved in the patient's care.
Original Note:
Today's Communication/Plan
-
see bold
Assessment / Plan
Assessment / Plan
88 F with anorectal ca s/p XRT and chemotherapy coming to ED after last infusion with mytomycin.� She reports oral pain and ulcers and persistent watery diarrhea.� No fevers, chills or leukocytosis.� Unable to tolerate po and significant weakness.
Gen: NAD, AAOx3.
Eyes: EOMI, PERRLA, no scleral icterus.
Neck: supple.
CV: remains RRR, +S1/S2, no m/r/g.
Resp: remains CTAB, no rales, wheezes, or rhonchi.
Abd: remains +BS, soft, NT, ND
Skin: No rashes.
Neuro: CN 2-12 intact, non-focal.
Psych: Normal mood and affect.
Anorectal cancer s/p chemo/XRT:
-with pancytopenia: due to chemo
-Daily CBC with diff
-May need G-CSF
-ONC following
-Silvadene, Aquaphor, Lidoderm for radiation-induced skin damage
Diarrhea:
-likely due to chemo/XRT induced enteritis
-cont IVFs
-C diff NEG
-follow rest of stool studies
-imodium PRN
Weakness:
-due to chemo and dehydration
-cont IVFs
Oral Mucositis:
-cont magic mouth wash
-pain control
Essential HTN:
-cont BB/Norvasc
FULL/Lovenox
Anticipated Discharge: Within 24 hours
Subjective/Interval History
-
Date of Service: October 09, 2023
Patient reports diarrhea is improving. Her oral pain has significantly improved.
Objective Data
-
Vital Signs:
Vital Signs
Temp Pulse Resp BP Pulse Ox
98.3 F 64 17 160/79 97
10/09/23 07:00 10/09/23 08:53 10/09/23 07:00 10/09/23 08:53 10/09/23 07:00
I&O
10/08/23 10/09/23 10/10/23
06:59 06:59 06:59
Intake Total 800 / 800 1879
Output Total 200 / 200
Balance 600 / 600 1879
[2023-10-09 10:34] LABS: % Immature Granulocytes 0.5 % (0-0.5); % Lymphocytes 18.9 % (20.5-51.1); % Monocytes 4.7 % (1.7-9.3); % Neutrophils 58.9 % (42.2-75.2); Absolute Eosinophils 0.4 10^3/uL (0-0.7); Absolute Lymphocytes 0.4 10^3/uL (1.2-3.4); Absolute Monocytes 0.1 10^3/uL (0.1-0.6); Absolute Neutrophils 1.3 10^3/uL (1.4-6.5); Hemoglobin 9.9 g/dL (12.0-16.0); Mean Corp Hgb Conc. 35.4 g/dL (33.0-37.0); Mean Corpuscular Hgb 31.7 pg (27.0-31.0); Mean Corpuscular Volume 89.7 fL (81.0-99.0); Mean Platelet Volume 8.7 fL (7.4-10.4); Nucleated Red Blood Cells % 0 %; Platelet Count 125 10^3/uL (130-400); Red Blood Cell Count 3.12 10^6/uL (4.20-5.40); Red Cell Dist. Width 14.2 % (11.5-14.5)
[2023-10-09 10:48] LABS: White Blood Cell Count 2.1 10^3/uL (4.8-10.8)
[2023-10-09 11:19] LABS: Blood Urea Nitrogen 7 mg/dl (7-17); Calcium 8.7 mg/dl (8.4-10.2); Carbon Dioxide 24 mmol/L (22-30); Chloride 107 mmol/L (98-107); Estimated Creatinine Clearance 58 ml/min; Glucose 92 mg/dl (70-99); Potassium 3.3 mmol/L (3.5-5.1); Sodium 137 mmol/L (135-145); eGFR > 60.00
--- NOTE | 2023-10-09 11:40 | WOUNDNOTE ---
ARNULFO RN NOTE: Patient admitted with dehydration, see chart for complete PMH. 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 Patient is up ambulating in room, able to show this bid writer areas of concern
on buttocks and small abrasion L groin. Patient states L groin dry abrasion from rubbing on brief plastic cover, that she used at home. Teaching done regarding skin care and how to pad cover and skin to prevent further skin damage. Patient is happy
with current use of products already ordered for buttocks, no changes recommended. Applied small silicone foam to L groin abrasion and gave patient supplies to take home. Nurse Kiley aware of the above. Will sign off.
--- NOTE | 2023-10-09 11:49 | W.PN.ONC ---
Today's Communication / Plan
-
Neutrophils remain low, but adequate. Okay for discharge from my perspective. Radiation to resume as quickly as possible as outpatient, she will call them.
Impression
Impression
Anal canal cancer, stage I (T1 N0)
Chemo mucositis
Chemo/RT enteritis
Dehydration
History of hemorrhoids
History of mycosis fungoides, currently quiescent
Plan
Plan
IV hydration
Magic mouthwash
Increase Imodium and change to standing dose
Only wants Tylenol for pain.
Low threshold for adding GCSF, needs diff on daily CBC.
Try to d/c 10/08, needs to resume radiation, has four treatments left.
Thank you for consult, will follow along with you.
Subjective/Objective
Subjective/Objective
She is feeling reasonably well. Her symptoms are improving. Examination is unchanged.
Vital Signs:
Vital Signs
Temp Pulse Resp BP Pulse Ox
98.3 F 64 17 160/79 97
10/09/23 07:00 10/09/23 08:53 10/09/23 07:00 10/09/23 08:53 10/09/23 10:23
Lab Results:
Laboratory Data
WBC 2.1 10^3/uL (4.8-10.8) L* 10/09/23 10:28
Hgb 9.9 g/dL (12.0-16.0) L 10/09/23 10:28
Plt Count 125 10^3/uL (130-400) L 10/09/23 10:28
eGFR > 60.00 10/09/23 10:28
--- NOTE | 2023-10-09 12:38 | W.DCSUMMARY ---
Discharge Summary
Discharge Data
Date of Admission: 10/07/23
Date of Discharge: 10/09/23
-
Pending Results: No
Hospital Course
Primary diagnoses:
Diarrhea due to chemotherapy and radiation induced enteritis
Chemotherapy-induced mucositis
Weakness due to dehydration and chemotherapy
Secondary diagnoses:
Anorectal cancer
Essential hypertension
Consultants:
Oncology
Imaging:
None
Hospital course: 88-year-old female who presented with chief complaints of mouth pain, diarrhea, and weakness as outlined in H&P done on admission. Patient had a history of anorectal cancer and was undergoing chemotherapy and radiation. She
recently had received mitomycin. She had chemotherapy and radiation induced enteritis and mucositis. She was treated with Magic mouthwash, IV fluids, antiemetics, and imodium, and had improvement of her symptoms. She also had skin damage due to
radiation therapy and was treated with Aquaphor, Silvadene, and lidocaine. The patient is being discharge in medically stable condition.
Discharge Plan
-
Patient Disposition: Home (Routine Discharge)
Discharge Diagnosis/Procedures: Diarrhea due to chemotherapy and radiation induced enteritis, chemotherapy-induced mucositis
Condition: Good
Diet: No restrictions
Activity: No restrictions
Driving Restrictions: As prior to admission
Bathing Restrictions: None
Activity Restrictions/Additional Instructions:
Wound Care Instructions
L groin: clean with soap and water, small foam change q 3-4 days or if soiled.
Pad plastic diaper cover when used.
Referrals:
Lauri Alarcon MD [Family Provider] - in less than 1 week
Prescriptions:
New
loperamide 2 mg Capsule
2 mg PO Q4HPRN PRN (Reason: diarrhea) Qty: 0 0RF
lidocaine [LMX 4] 4 % Cream
1 applic topical TID Qty: 15 0RF
white petrolatum [Hydrophor] 42 % Ointment
1 applic topical DAILY Qty: 100 0RF
silver sulfadiazine 1 % Cream
1 applic topical BID Qty: 25 0RF
Continued
cyanocobalamin (vitamin B-12) 1,000 MCG tablet
1,000 mcg PO DAILY
Prevagen
1 tab PO DAILY
Patient Comments:
homeopathic brain supplement
coenzyme Q10 [Co Q-10] 100 MG capsule
100 mg PO DAILY
metoprolol succinate 25 mg Tablet Extended Release 24 Hr
25 mg PO HS
lorazepam 1 mg Tablet
1 mg PO DAILY PRN (Reason: anxiety)
losartan 100 mg Tablet
100 mg PO DAILY
Align
2 gum PO DAILY
vitamin D3-vitamin K2 125 mcg (5,000 unit)-100 mcg Capsule
1 cap PO DAILY
Curcumin 100 mg tablet
1 tab PO DAILY
Metamucil
2 gum PO HS
Multi-Vitamin
2 gum PO DAILY
Protection 3 Fish Oil 1,080 mg liquid
1,080 mg PO DAILY
Vitamin C 250 mg gum
1 gum PO DAILY
magnesium citrate 170 mg gum
2 gum PO DAILY
turmeric 450 mg gum
3 gum PO DAILY
Beet Root
1 gum PO DAILY
Discharge Orders:
Discharge Patient (As Directed); Ordered 10/09/23
Ordered By: Royal Akers
Discharge Date and Time
Print Language: UKRAINIAN
--- NOTE | 2023-10-09 13:09 | CM ---
Met with pt
For d/c today
Will have ride home
Discussed IMM
Plan - anticipate home no needs
[2023-10-09 13:49] VITALS: BP 117/57
== END 2023-10-09 14:20 | disposition home or self-care (01) | DRG 394 ==
LOC: 3 WEST ACU 10:04
PROVIDERS: Registered Nurse; ADMITTING PHYSICIAN Internal Medicine; ATTENDING PHYSICIAN Internal Medicine; CONSULT PHYSICIAN Internal Medicine Hematology & Oncology; EMERGENCY PHYSICIAN Emergency Medicine; FAMILY PHYSICIAN Obstetrics & Gynecology Reproductive Endocrinology
DX: K52.1 Toxic gastroenteritis and colitis (principal); C21.8 Malignant neoplasm of overlapping sites of rectum, anus and anal canal; T45.1X5A Adverse effect of antineoplastic and immunosuppressive drugs, initial encounter; E86.0 Dehydration; I10 Essential (primary) hypertension; Y84.2 Radiological procedure and radiotherapy as the cause of abnormal reaction of the patient, or of later complication, without mention of misadventure at the time of the procedure; K12.31 Oral mucositis (ulcerative) due to antineoplastic therapy
CPT/HCPCS: 80048; 80053; 82962; 85025; 85027; 87045; 87046; 87324; 87427; 87449; 89055; 96360; 97162; 99285

== ENCOUNTER → 2023-11-20 13:00 | Outpatient (REF) | payer MEDICARE, SELFPAY ==
[2023-11-20 13:27] VITALS: BP 135/75
== END ==
LOC: RADI 13:00
PROVIDERS: ATTENDING PHYSICIAN Internal Medicine Hematology & Oncology; FAMILY PHYSICIAN Family Medicine
DX: Z45.2 Encounter for adjustment and management of vascular access device (principal); Z85.048 Personal history of other malignant neoplasm of rectum, rectosigmoid junction, and anus
CPT/HCPCS: 36590; 77001

== ENCOUNTER → 2024-10-06 13:00 | Outpatient (REF) | payer MEDICARE, SELFPAY | LOC: RCS 13:00 | PROVIDERS: ATTENDING PHYSICIAN Internal Medicine Cardiovascular Disease; FAMILY PHYSICIAN Family Medicine | DX: I35.8 Other nonrheumatic aortic valve disorders (principal) | CPT/HCPCS: 93306 ==